=== PATIENT | female | born 1995 | race Hispanic/Latino ===

== ENCOUNTER 2016-08-08 19:11 | Emergency (ER) | payer SELFPAY ==
[~2016-08-08] VITALS: Ht 157.5 cm; Wt 49.1 kg
[~2016-08-08 19:11] MED LIST: Docusate Sodium PO; Ibuprofen PO; Oxycodone/Acetaminophen PO
[2016-08-08 19:52] VITALS: BP 112/78; PULSE 144; RESP 32; O2SAT 100
--- NOTE | 2016-08-08 20:31 | ED.REPORT ---
HPI-Abd Pain F Under 41 Date of Service Aug 08, 2016 ED Provider: Mainor Henderson MD The patient is an otherwise healthy 20 year old female who presents to the ED due to diffuse lower abdominal pain onset four days ago. Associated symptoms include fever, dysuria, and chills. She has an IUD. Nursing Notes Stated Complaint: FEVER, SHAKING, PAINFUL URINATION/INTERCOURSE Chief Complaint: Female Abdominal Pain Nursing Notes Reviewed: Yes Allergies: Coded Allergies: No Known Allergies (Unverified Allergy, Unknown, 08/08/16) Scheduled Cephalexin (Keflex) 500 Mg Capsule 500 MG PO QID Scheduled PRN ([Docusate Sodium]) 100 MG CAPSULE 100 MG PO BID PRN PRN For Constipation ([Ibuprofen]) 800 MG TABLET 600 MG PO Q6H PRN PRN For Pain ([Oxycodone/Acetaminophen]) 1 TAB TABLET 1 TAB PO Q6 PRN PRN For Pain Ondansetron ODT (Ondansetron ODT) 8 Mg Tab.rapdis 8 MG PO QID PRN PRN For Nausea General Time Seen by MD: 20:30 Chief Complaint Abdominal pain Hx Obtained From: Patient Arrived By: Walk-in Sudden in Onset?: Yes Onset Occurred: 4 days ago Symptom Duration: Since onset Progression since Onset: Gradually worsening Location: : Abdomen lower Quality: Cramping Radiation: : Does not radiate Severity: Current: Moderate Sexual History / Control: Reports IUD Recent Healthcare: No recent doctor visit, No recent hospitalization Similar Sx Previous: No Past Medical History Past Medical History denies Past Surgical History denies Smoking History Never Smoker Social History Other Social History: Good social support, Local resident Ambulatory Status Independent Review of Systems Constitutional: Reports: Chills, Fever GI: Reports: Abdominal pain Female: Reports: Dysuria Complete sys rev & neg: except as marked. Physical Exam Initial Vital Signs Vital Signs (First) Date Time Temp Pulse Resp B/P Pulse Ox O2 Delivery O2 Flow Rate FiO2 08/08/16 19:52 38.1 144 32 112/78 100 Room Air Initial VS: Reviewed Head / Eyes: Atraumatic, Normocephalic, PERRL ENT: Mucous membranes moist, Conjunctiva normal, No scleral icterus Neck: Supple, Non-tender, Full range of motion Extremities: Vascular intact, Neuro intact, No swelling, No tenderness Skin: Warm, Dry, No cyanosis General/Constitutional: Awake, Alert, No acute distress, Cooperative, Not toxic appearing Respiratory / Chest: Atraumatic, Breath sounds NL, Breath sounds = bilat, No respiratory distress Cardiovascular: No murmurs, No rubs Heart Rate / Rhythm: Positive: Tachycardia Abdomen: Atraumatic, Soft minimially tender suprapubic area Back: Atraumatic, Inspection NL, Full range of motion Interpretation & Diagnostics Lab Results Interpretation Result Diagram: 08/08/16210808/08/162108 Test 08/08/16 20:39 08/08/16 21:08 08/08/16 21:09 Neutrophils (%) (Auto) 76.4% (40-74) Lymphocytes (%) (Auto) 11.2% (14-46) Monocytes (%) (Auto) 11.9% (4-12) Eosinophils (%) (Auto) 0% (0-5) Basophils (%) (Auto) 0.2% (0-3) Urine Color Yellow (YELLOW) Urine Appearance Cloudy (CLEAR,HAZY) Urine pH 6.5 (5.0-8.0) Urine Specific [place] 1.017 (1.003-1.035) Urine Protein 100mg/dL (NEG,TRACE) Urine Glucose (UA) Negativemg/dL (NEGATIVE) Urine Ketones 80mg/dL (NEGATIVE) Urine Occult Blood Moderate (NEGATIVE) Urine Nitrite Positive (NEGATIVE) Urine Bilirubin Negative (NEGATIVE) Urine Urobilinogen Normalmg/dL (NORMAL) Urine Leukocyte Esterase Large (NEGATIVE) Urine RBC 3-10/hpf (0-2) Urine WBC 11-50/hpf (0-5) Urine Epithelial Cells Occasional/hpf (NONE-MOD) Urine Crystals None seen (NONE SEEN) Urine Bacteria Moderate/hpf (NONE-FEW) Urine Hyaline Casts None/lpf (NONE) Urine Granular Casts None seen (NONE SEEN) Urine Waxy Casts None seen (NONE SEEN) Urine Red Blood Cell Casts None seen (NONE SEEN) Urine White Blood Cell Casts None seen (NONE SEEN) Urine Mucus Present (None Seen) Urine Trichomonas None seen (NONE SEEN) Urine Yeast None (NONE SEEN) Urinalysis Comment None Urine Culture Reflexed Indicated White Blood Count 9.9th/mm3 (3.8-10.1) Red Blood Count 4.25mil/mm3 (3.90-5.20) Hemoglobin 12.5g/dL (12.0-15.6) Hematocrit 37.2% (35.0-46.0) Mean Corpuscular Volume 87.5fL (81-100) Mean Corpuscular Hemoglobin 29.4pg (27.0-35.0) Mean Corpuscular Hemoglobin Concent 33.6% (32.0-37.0) Red Cell Distribution Width 13.9% (12.3-15.4) Platelet Count 195bil/L (150-400) Sodium Level 134mEq/L (134-144) Potassium Level 3.2mEq/L (3.5-5.2) Chloride Level 101mEq/L (97-108) Carbon Dioxide Level 17mmol/L (18-29) Blood Urea Nitrogen 6mg/dL (6-20) Creatinine 0.55mg/dL (0.57-1.00) Estimat Glomerular Filtration Rate 204mL/min (>59) Glucose Level 105mg/dL (60-99) Calcium Level 7.5mg/dL (8.5-10.1) Magnesium Level 1.5mg/dL (1.6-2.6) Total Bilirubin 1.0mg/dL (0.0-1.2) Aspartate Amino Transf (AST/SGOT) 16U/L (0-50) Alanine Aminotransferase (ALT/SGPT) 12U/L (0-32) Alkaline Phosphatase 66U/L (25-150) Total Protein 5.9g/dL (6.4-8.4) Albumin 3.3g/dL (3.4-5.0) Lipase 17U/L (13-60) Hold Hirsch Top Tube Received (Received) Re-Eval/Medical Decision Med Decision/Clinical Course Med Decision/Clinical Course: 20-year-old with dysuria and suprapubic pain presents with grossly purulent urine. Begun with Rocephin here. Some possibility of chlamydia will be addressed with 1 g of azithromycin. If her symptoms persist, she will need removal of her IUD. Counseled Regarding: Diagnosis, Lab results, Need for follow-up, When/why to return to ED Discharge & Departure Primary Impression: Pyelonephritis Disposition: Home Discharge Condition All VS Reviewed: Yes Condition: Stable Additional Instructions: Begin Keflex four times daily. Drink plenty of fluids and stay well-hydrated. Return if you continue to have fever or worsening symptoms despite treatment. Zofran if needed for nausea. Follow-up with your doctor in the office. Referrals: [facility] Scribe Attestation Portion of this note were transcribed by Faiza Mclain. I, Dr. Henderson, personally performed the history, physical exam, and medical decision-making: I reviewed and confirmed the accuracy for the information in the transcribed note. Signed by: nestor Ramirez, 08/08/16 2200 copies to: [facility] Mainor Henderson MD Aug 08, 2016 20:31 Faiza Mclain Aug 08, 2016 20:41
[2016-08-08] MEDS ORDERED: Ondansetron 2 mg/mL 2 mL Inj IVPUSH ONE (20:40)
[2016-08-08] MEDS: 0.9% Sodium Chloride 1,000 ML IV SCH ×2 (20:43→21:03)
[2016-08-08 20:56] LABS: BASOPHILS % (AUTO) 0.2 % (0-3); EOSINOPHILS % (AUTO) 0 % (0-5); MONOCYTES % (AUTO) 11.9 % (4-12); Mean Corpuscular Hemoglobin 29.5 pg (27.0-35.0); Mean Corpuscular Volume 86.2 fL (81-100); NEUTROPHILS % (AUTO) 76.4 % (40-74); Platelet Count 258 bil/L (150-400)
[2016-08-08 21:03] VITALS: BP 108/66; PULSE 109; RESP 13; O2SAT 100
[2016-08-08 21:27] LABS: Mean Corpuscular Hemoglobin 29.4 pg (27.0-35.0); Mean Corpuscular Volume 87.5 fL (81-100)
[2016-08-08 21:38] LABS: APPEARANCE,URINE CLOUDY (CLEAR,HAZY); COLOR,URINE YELLOW (YELLOW); OCCULT BLOOD,URINE MODERATE (NEGATIVE); PH,URINE 6.5 (5.0-8.0); UROBILINOGEN,URINE NORMAL (NORMAL)
[2016-08-08 21:56] LABS: Magnesium 1.5 mg/dL (1.6-2.6)
[2016-08-08] MEDS ORDERED: 0.9% Sodium Chloride 1,000 ML IV ONE (22:00)
[2016-08-08] MEDS ORDERED: cefTRIAXone Inj 2,000 MG in Dextrose 5% Minibag Plus 50 ML IV ONE (22:00)
[2016-08-08 22:08] VITALS: BP 91/51; PULSE 97; RESP 22; O2SAT 100
[2016-08-08] MEDS ORDERED: ONDA8TAB10 PO (23:03)
[2016-08-08] MEDS ORDERED: CEPH-512 PO (23:03)
[2016-08-08] MEDS ORDERED: _Ondansetron ODT 4 mg Tablet PO PRN (23:10)
[2016-08-08] MEDS ORDERED: _oxyCODONE/APAP 5-325 mg Tablet PO PRN (23:10)
[2016-08-08 23:13] VITALS: BP 94/57; PULSE 89; RESP 20; O2SAT 99
[2016-08-08 23:30] VITALS: BP 94/57; PULSE 89; RESP 20; O2SAT 99
== END 2016-08-08 23:30 | disposition home or self-care (01) ==
LOC: SED 19:11
DX: N12 Tubulo-interstitial nephritis, not specified as acute or chronic (principal); R10.30 Lower abdominal pain, unspecified
CPT/HCPCS: 36415; 80053; 81000; 81025; 83690; 83735; 85025; 85027; 87040; 87077; 87086; 87088; 87186; 96361; 96365; 96375; 99285; J0696; J2405; J7030